=== PATIENT | female | born 1995 | race Caucasian/White ===

== ENCOUNTER 2017-12-19 19:33 | Emergency (ER) | payer OTHER ==
--- NOTE | 2017-12-19 20:01 | EDPHY ---
H & P Stated Complaint: PAIN INSIDE VAG AREA FOR PAST 5 DAYS, NOW PAINFUL TO TOUCH Time Seen by Provider: 12/19/17 19:58 HPI/ROS: HPI: This is a 22-year-old female who presents with Chief Complaint: Labial abscess Location: Labia Quality: Abscess Duration: 5 days Signs and Symptoms: no fever, no nausea, no vomiting, no hematemesis, no blood in stool, no abdominal bloating, no diarrhea, no back pain, no urinary symptoms , no vaginal discharge/bleeding, no indigestion, no chest pain, no shortness of breath Timing: Gradually worse Severity: [id number] Context: Patient reports that she is currently sexually active presents with complaints of gradually worsening 4-5 day history of left inner labia abscess. Patient reports that approximately 10 days ago she shaved her pubic area. She has no prior history of labial abscess or Bartholin gland cysts. Patient reports that she has an appointment in 5 days with her med dir. Her last pelvic exam was approximately 1 year ago. No history of STD. She has not tried warm compresses. She reports that the pain is constant, mild, nonradiating in nature. Pain increases with palpation of the area or sexual intercourse. Modifying Factors: None Comment: ROS: see HPI Constitutional: No fever, no chills, no weight loss Eyes: No blurred vision Respiratory: No shortness of breath, no cough Cardiovascular: No chest pain, no palpitations Gastrointestinal: No nausea, no vomiting, no diarrhea, no hematemesis, no blood in stool Genitourinary: No dysuria, no blood in urine Extremities: No myalgias, no edema Neurologic: No weakness, no numbness Skin: No rashes, no petechiae Hematologic: No bruising, no bleeding MEDICAL/SURGICAL/SOCIAL HISTORY: Medical history: Generally healthy. Does not take any regular medications. Surgical history: Denies Social history: Family history noncontributory. CONSTITUTIONAL: awake and alert, no obvious distress HEENT: Atraumatic and normocephalic, PERRL, EOMI. Nares patent; no rhinorrhea; no nasal mucosal edema. Tympanic membranes clear. Oropharynx clear, no exudate and moist pink mucosa. Airway patent. No lymphadenopathy. No meningismus. Cardiovascular: Normal S1/S2, regular rate, regular rhythm, without murmur rub or gallop. PULMONARY/CHEST: Symmetrical and nontender. Clear to auscultation bilaterally. Good air movement. No accessory muscle usage. ABDOMEN: Soft, nondistended, nontender, no rebound, no guarding, no peritoneal signs, no masses or organomegaly. No CVAT. PELVIC: 1 inch annular mildly erythematous; left inner labia at the 2 o'clock position with fluctuance, no discharge, no bleeding. The exam was performed with a hair specialist. EXTREMITIES: 2/2 pulses, strength 5/5, no deformities, no clubbing, no cyanosis or edema. NEUROLOGICAL: no focal neuro deficits. GCS 15. SKIN: Warm and dry, no erythema. no rash. Good capillary refill. Source: Patient Exam Limitations: No limitations - Personal History LMP (Females 10-55): 22-28 Days Ago Current Tetanus/Diphtheria Vaccine: Yes Current Tetanus Diphtheria and Acellular Pertussis (TDAP): Yes - Medical/Surgical History Hx Asthma: No Hx Chronic Respiratory Disease: No Hx Diabetes: No Hx Cardiac Disease: No Hx Renal Disease: No Hx Cirrhosis: No Hx Alcoholism: No Hx HIV/AIDS: No Hx Splenectomy or Spleen Trauma: No Other PMH: PSH: wisdom teeth;. PMH: interstitial cystitis; depression - Social History Smoking Status: Current some day smoker Constitutional: Initial Vital Signs Temperature (C) 37.2 C 12/19/17 19:38 Heart Rate 79 12/19/17 19:38 Respiratory Rate 18 12/19/17 19:38 Blood Pressure 106/83 H 12/19/17 19:38 O2 Sat (%) 96 12/19/17 19:38 O2 Delivery Mode Room Air Allergies/Adverse Reactions: No Known Allergies Allergy (Unverified 12/19/17 19:40) Home Medications: Medication Instructions Recorded Cefixime [Suprax] 400 mg PO DAILY 7 Days capsule 12/19/17 Clindamycin HCl [Clindamycin] 300 mg PO TID #21 cap 12/19/17 Medical Decision Making Procedures: Procedure: Abscess drainage. The patient's abscess was located on the left inner labia. I obtained verbal consent from the patient to drain the abscess who was informed about the possibility of bleeding and pain. The abscess was incised with #11 scalpel and a 2 mL amount of purulent drainage was expressed. I irrigated the wound and no packing was placed. The patient tolerated the procedure well. The procedure was performed by myself. ED Course/Re-evaluation: Patient has a labial abscess and not a Bartholin gland cyst Small fluctuant abscess; I&D performed; packing not able to be placed Placed on Cefixime and Clindamycin for 7 days Advised to keep her follow-up appointment with med dir next week. Pelvic rest and Sitz bath instructions provided to the patient This patient was seen under the supervision of my secondary supervising physician. I evaluated care for this patient independently. Discussed this patient with Dr. Greene who did not see the patient. Differential Diagnosis: Differential diagnosis includes but is not limited to cellulitis, abscess, Bartholin gland cyst versus abscess, folliculitis. Departure - Departure Disposition: Home, Routine, Self-Care Clinical Impression: Abscess of left genital labia Instructions: Abscess (ED), Bartholin Cyst (ED), Incision and Drainage (ED) Additional Instructions: Perform Sitz past x2 days. Abstain from vaginal intercourse until symptoms have completely resolved. Do not shave your genital area until all symptoms have resolved. Keep follow-up appointment with OBGYN next week. Take all antibiotics as directed until complete. Referrals: PCP Not In,Dictionary [Medical Doctor] - As per Instructions Prescriptions: Cefixime [Suprax] 400 mg PO DAILY 7 Days capsule Clindamycin HCl [Clindamycin] 300 mg PO TID #21 cap
[2017-12-19 20:09] VITALS: BP 111/67
== END 2017-12-19 20:14 | disposition home or self-care (01) ==
PROC: 0U9MXZZ Drainage of Vulva, External Approach (ICD-10-PCS; principal; 2017-12-19)
DX: N76.4 Abscess of vulva (principal); F17.200 Nicotine dependence, unspecified, uncomplicated